=== PATIENT | female | born 1960 | race Caucasian/White ===

== ENCOUNTER 2017-02-17 12:43 | Emergency (ER) | payer OTHER ==
[~2017-02-17] VITALS: Wt 82.7 kg
[~2017-02-17 12:43] MED LIST: CETI10CA PO; POLY10DR19 RIGHT EYE
[2017-02-17] MEDS ORDERED: SOD CHLORIDE 0.9% 1,000 ML IV STA (12:54)
[2017-02-17] MEDS ORDERED: METOCLOPRAMIDE 10 MG INJ IV STA (12:54)
--- NOTE | 2017-02-17 13:09 | ERD ---
ER Documentation Chief Complaint Date/Time DATE: 02/17/17 TIME: 13:07 Chief Complaint headache and nausea and vomiting with high bp no neuro deficit HPI Patient is a 56-year-old female who presents with gradual onset, intermittent nausea and vomiting since this morning. Symptoms started after she had blood drawn for routine testing. She is noted to have an elevated blood pressure with a systolic around 200. She was given clonidine, but vomited after. The patient states that she started developing a headache after vomiting. Headache was gradual onset. She denies visual disturbance. She has history of hypertension, and reports being compliant with medication. She states that over the weekend, her blood pressure was elevated and she had episodes of vomiting at that time as well. She denies fever, dysuria, abdominal pain. ROS All systems reviewed and are negative except as per history of present illness. Medications Home Meds Reported Medications Aspirin* (Aspirin* EC) 81 Mg Tablet.dr, 81 MG PO DAILY, TAB 02/17/17 Losartan Potassium* (Losartan Potassium*) 100 Mg Tablet, 100 MG PO DAILY, TAB 02/17/17 Metoprolol Succinate* (Toprol XL*) 50 Mg Tab.er.24h, 50 MG PO DAILY, #30 TAB 02/17/17 Discontinued Scripts Cetirizine Hcl* (Zyrtec*) 10 Mg Capsule, 10 MG PO DAILY, #20 TAB.CHEW Prov:KAISER HEARN MD 05/13/15 Polymyxin B Sulfate-TMP* (Polymyxin B-TMP Eye Drops*) 10 Ml Drops, 1 DROP RIGHT EYE QID for 7 Days, EA Prov:KAISER HEARN MD 05/13/15 Allergies Allergies: Coded Allergies: Penicillins (Unverified Allergy, Unknown, 02/17/17) PMhx/Soc Past medical history: Hypertension Past surgical history: None Social history: Denies tobacco, alcohol or illicit drugs. Hx Alcohol Use: No Hx Substance Use: No Hx Tobacco Use: No FmHx Family History: No coronary disease, No diabetes Physical Exam Vitals Vital Signs Date Time Temp Pulse Resp B/P Pulse Ox O2 Delivery O2 Flow Rate FiO2 02/17/17 20:22 98.6 77 20 168/82 100 Room Air 02/17/17 18:30 74 20 174/93 100 Room Air 02/17/17 17:55 98.6 74 18 156/82 98 Room Air 7/18/17 15:20 98.3 69 18 176/88 98 Room Air 02/17/17 12:57 98.5 64 20 164/101 98 Physical Exam Const: Alert, appears slightly anxious Head: Atraumatic Eyes: Normal Conjunctiva, no pallor, no icterus. Pupils equal, round and reactive ENT: Normal External Ears, Nose and Mouth. Tacky mucous membranes Neck: Full range of motion..~ No meningismus. Resp: Clear to auscultation bilaterally, no wheezes, no rales Cardio: Regular rate and rhythm, no murmurs Abd: Soft, non tender, non distended. Skin: No petechiae or rashes Back: No midline or flank tenderness Ext: No cyanosis, or edema Neur: Awake and alert, cranial nerves II through XII intact bilaterally, strength and sensation full in 4 extremities Psych: Normal Mood and Affect Result Diagram: 02/17/17 1305 02/17/17 1305 Results 24 hrs Laboratory Tests Test 02/17/17 13:05 02/17/17 14:18 02/17/17 20:20 White Blood Count 8.510^3/ul Red Blood Count 4.8310^6/ul Hemoglobin 14.3g/dl Hematocrit 41.9% Mean Corpuscular Volume 86.7fl Mean Corpuscular Hemoglobin 29.6pg Mean Corpuscular Hemoglobin Concent 34.1g/dl Red Cell Distribution Width 11.8% Platelet Count 16370^3/UL Mean Platelet Volume 9.2fl Neutrophils % 66.8% Lymphocytes % 21.9% Monocytes % 8.5% Eosinophils % 1.9% Basophils % 0.5% Nucleated Red Blood Cells % 0.0/100WBC Neutrophils # 5.710^3/ul Lymphocytes # 1.910^3/ul Monocytes # 0.710^3/ul Eosinophils # 0.210^3/ul Basophils # 0.010^3/ul Nucleated Red Blood Cells # 0.010^3/ul Prothrombin Time 12.1Sec Prothrombin Time Ratio 0.9 INR International Normalized Ratio 0.90 Sodium Level 140mmol/L Potassium Level 4.1mmol/L Chloride Level 97mmol/L Carbon Dioxide Level 28mmol/L Anion Gap 19 Blood Urea Nitrogen 11mg/dl Creatinine 0.71mg/dl Glucose Level 140mg/dl Calcium Level 9.8mg/dl Serum HCG, Qualitative NEGATIVE Urine Color STRAW Urine Clarity CLEAR Urine pH 8.0 Urine Specific [place] 1.008 Urine Ketones NEGATIVEmg/dL Urine Nitrite NEGATIVEmg/dL Urine Bilirubin NEGATIVEmg/dL Urine Urobilinogen NEGATIVEmg/dL Urine Leukocyte Esterase NEGATIVELeu/ul Urine Hemoglobin NEGATIVEmg/dL Urine Glucose NEGATIVEmg/dL Urine Total Protein NEGATIVEmg/dl Pathologist Review (Hematology) CSF Tubes Submitted 4 CSF Volume 4.0ml CSF Appearance CLEAR CSF Color COLORLESS CSF WBC 1/cmm CSF RBC 0/uL CSF Cell Count Tube # TUBE#4 CSF Mononuclear Cells % (Auto) % CSF Polynuclear WBCs (%) % Path Consult Signing Pathologist Current Medications Medications (Trade) Dose Ordered Sig/Deanna Route PRN Reason Start Time Stop Time Status Last Admin Dose Admin Sodium Chloride (NS) 1,000 ml @ 1,000 mls/hr Q1H STAT IV 02/17/17 12:54 02/17/17 13:53 DC 02/17/17 13:10 Metoclopramide HCl (Reglan) 10 mg ONCE STAT IV 02/17/17 12:54 02/17/17 12:56 DC 02/17/17 13:10 Losartan Potassium (Cozaar) 100 mg ONCE ONCE PO 02/17/17 16:30 02/17/17 16:31 DC 02/17/17 16:17 Metoprolol Succinate (Toprol Xl) 50 mg ONCE ONCE PO 02/17/17 16:30 02/17/17 16:31 DC 02/17/17 16:17 Procedures/MDM Lumbar Puncture by me: Patient consented, time out performed, sterilely prepped/draped, anesthetized locally. Anesthesia: 1% lidocaine locally Location: One interspace below the iliac crest Technique: 20 gauge needle with stylet for entry and removal of needle Results: Clear CSF fluid No post procedure complications, bleeding, numbness or weakness. MDM: Patient is a 56-year-old female who presents with headache and vomiting in the setting of elevated blood pressure. The patient initially reported that her headache was gradual in onset and started after vomiting. When I questioned her again, she stated that it was sudden onset and severe at onset. She also stated that vomiting followed her onset of headache. I therefore advised the patient to have a lumbar puncture to exclude subarachnoid hemorrhage. The patient did report to recent prior episodes of similar headache. CT and LP were performed and showed no evidence of subarachnoid hemorrhage or meningitis. The patient had been given Reglan, and her headache had almost completely resolved. There are no visual disturbances, no neurological deficits, and no features concerning for angle-closure glaucoma or giant cell arteritis. The patient was able to tolerate oral intake in the ER after receiving Reglan. Her blood pressure was labile, but at time of discharge was in the 160 systolic. The patient had not taken her home medications for hypertension prior to ER arrival. Advised her to take her medications as prescribed, and to follow-up with your PMD in the next 2-3 days for blood pressure recheck. I did advise her on return precautions as well. The patient did report that she stuck her fingers down her throat to induce vomiting due to feeling nauseous. I suspect that she may have underlying anxiety contributing to her symptoms. Departure Diagnosis: Primary Impression: Headache Headache type: unspecified Headache chronicity pattern: acute headache Intractability: not intractable Qualified Code: R51 - Acute nonintractable headache, unspecified headache type Additional Impression: Hypertension Hypertension type: essential hypertension Qualified Code: I10 - Essential hypertension Condition: OMER Traore MD Feb 17, 2017 13:09
[2017-02-17 13:11] LABS: ADD SCAN DIFF NO
[2017-02-17 13:20] LABS: BASOPHILS % 0.5 % (0.0-2.0); EOSINOPHILS # 0.2 10^3/ul (0.0-0.5); EOSINOPHILS % 1.9 % (0.0-7.0); HEMATOCRIT 41.9 % (37.0-47.0); HEMOGLOBIN 14.3 g/dl (12.0-16.0); LYMPHOCYTES # 1.9 10^3/ul (0.8-2.9); LYMPHOCYTES % 21.9 % (15.0-51.0); MEAN CORPUSCULAR HEMOGLOBIN 29.6 pg (29.0-33.0); MEAN CORPUSCULAR HGB CONC 34.1 g/dl (32.0-37.0); MEAN CORPUSCULAR VOLUME 86.7 fl (82.0-101.0); MEAN PLATELET VOLUME 9.2 fl (7.4-10.4); MONOCYTE # 0.7 10^3/ul (0.3-0.9); MONOCYTES % 8.5 % (0.0-11.0); NEUTROPHIL # 5.7 10^3/ul (1.6-7.5); NEUTROPHILS % 66.8 % (39.0-77.0); PLATELET COUNT 262 10^3/UL (140-415); RED BLOOD COUNT 4.83 10^6/ul (4.20-5.40); RED CELL DISTRIBUTION WIDTH 11.8 % (11.5-14.5); WHITE BLOOD COUNT 8.5 10^3/ul (4.8-10.8)
[2017-02-17 13:29] LABS: INR 0.9; PROTIME 12.1 Sec (12.2-14.2); PT RATIO 0.9
[2017-02-17 13:30] LABS: CALCIUM 9.8 mg/dl (8.4-10.2); CREATININE 0.71 mg/dl (0.44-1.00); POTASSIUM 4.1 mmol/L (3.5-5.1)
[2017-02-17 14:38] LABS: ADD UMIC NO; UR ASCORBIC ACID NEGATIVE (NEGATIVE); UR BILIRUBIN (Dip) NEGATIVE (NEGATIVE); UR BLOOD (Dip) NEGATIVE (NEGATIVE); UR CLARITY CLEAR (CLEAR); UR COLOR STRAW (YELLOW); UR GLUCOSE (Dip) NEGATIVE (NEGATIVE); UR KETONES (Dip) NEGATIVE (NEGATIVE); UR LEUKOCYTE ESTERASE (Dip) NEGATIVE Leu/ul (NEGATIVE); UR NITRITE (Dip) NEGATIVE (NEGATIVE); UR SPECIFIC GRAVITY (Dip) 1.008 (1.003-1.030); UR TOTAL PROTEIN (Dip) NEGATIVE (NEGATIVE); UR UROBILINOGEN (Dip) NEGATIVE (NEGATIVE)
--- NOTE | 2017-02-17 14:38 | RADRPT ---
PROCEDURE: CT Brain without. CLINICAL INDICATION: Headache. TECHNIQUE: A CT of the brain was performed on multidetector high-resolution CT scanner utilizing a xial sections from the skull base through the vertex without contrast. The scan was reviewed in sof t tissue brain and high frequency resolution bone algorithm windows. Images were reviewed on a high -resolution PACS workstation. One or more the following does reduction techniques were utilized: Aut omated exposure control, adjustment of the mA/ or kV according to patient's size, or use of iterativ e reconstruction technique. The exam CTDI = 44.97 mGy and the DLP = 630.2 mGy-cm. COMPARISON: None available. FINDINGS: The ventricles and sulci are age-appropriate. There is no intracranial hemorrhage, mass effect or mi dline shift. No abnormal intra-axial or extra-axial fluid collections are seen. The taylor/white hector er differentiation is preserved. There is 1 cm osteolytic lesion in the right frontal lobe which lik gerson represents an arachnoid granulation. No acute skull abnormality is noted. The visualized paranas al sinuses demonstrate mild scattered mucosal thickening mainly in ethmoid air cells. The mastoid a ir cells are essentially clear. IMPRESSION: 1. No acute intracranial hemorrhage, transcortical infarction or mass effect. RPTAT: HH .Kobe Mendoza MD, MD Date Time Electronically viewed and signed by .Kobe Mendoza MD, MD on 02/17/2017 14:38 .N/
[2017-02-17] MEDS ORDERED: METO50TA16 PO (15:19)
[2017-02-17] MEDS ORDERED: LOSA100T7 PO (15:20)
[2017-02-17] MEDS ORDERED: ASPI-664 PO (15:20)
[2017-02-17] MEDS ORDERED: LOSARTAN 50 MG TAB PO ONE (16:30)
[2017-02-17] MEDS ORDERED: METOPROLOL (XL) 50 MG TAB PO ONE (16:30)
[2017-02-17 20:29] LABS: PATH REVIEW? NO
[2017-02-17 20:34] LABS: PATH REVIEW? NO
[2017-02-17 20:54] LABS: CSF COLOR COLORLESS; CSF#TUBE COUNT TUBE#4; CSF#TUBES REC'D 4
[2017-02-17 20:55] LABS: CSF COLOR COLORLESS; CSF#TUBE COUNT TUBE#1; CSF#TUBES REC'D 4
[2017-02-17 21:24] VITALS: BP 161/82; PULSE 82; RESP 18; TEMP 98.5
== END 2017-02-17 21:25 | disposition home or self-care (01) ==
LOC: E/R 12:43
DX: R51 Headache (principal); R40.2252 Coma scale, best verbal response, oriented, at arrival to emergency department; I10 Essential (primary) hypertension; R40.2142 Coma scale, eyes open, spontaneous, at arrival to emergency department; R40.2362 Coma scale, best motor response, obeys commands, at arrival to emergency department; Z79.82 Long term (current) use of aspirin
CPT/HCPCS: 36415; 62270; 70450; 80048; 81003; 82945; 84157; 84703; 85025; 85610; 89051; 96361; 96374; J2765; J7030; Z7502; Z7610